=== PATIENT | female | born 1980 | race Caucasian/White ===

== ENCOUNTER 2020-10-30 09:16 | Day surgery (SDC) | payer OTHER ==
[2020-10-24 11:18] VITALS: BMI 45.7
[2020-10-30 11:13] VITALS: TEMP 98.2
[2020-10-30 11:46] VITALS: BP 110/58; PULSE 76
== END 2020-10-30 11:47 | disposition home or self-care (01) ==
LOC: FASU 09:16
PROVIDERS: ATTEND Internal Medicine Gastroenterology
PROC: 0DB68ZX Excision of Stomach, Via Natural or Artificial Opening Endoscopic, Diagnostic (ICD-10-PCS; 2020-10-30)
PROC: 0DB48ZX Excision of Esophagogastric Junction, Via Natural or Artificial Opening Endoscopic, Diagnostic (ICD-10-PCS; 2020-10-30)
PROC: 0DB98ZX Excision of Duodenum, Via Natural or Artificial Opening Endoscopic, Diagnostic (ICD-10-PCS; principal; 2020-10-30 10:56)
DX: K29.50 Unspecified chronic gastritis without bleeding (principal); K22.8 Other specified diseases of esophagus; R10.13 Epigastric pain
CPT/HCPCS: 84703; 88305-TC; 88342-TC

== ENCOUNTER 2021-11-12 09:53 | Day surgery (SDC) | payer OTHER ==
[2021-11-05 14:24] VITALS: BMI 46.4
[2021-11-12] MEDS ORDERED: PROPOFOL 20 ML ONE ×3 (11:23)
[2021-11-12 11:43] VITALS: TEMP 97.7
[2021-11-12 11:57] VITALS: BP 125/81; PULSE 86
== END 2021-11-12 12:23 | disposition home or self-care (01) ==
LOC: FASU-ENDO 09:53
PROVIDERS: ATTEND Internal Medicine Gastroenterology
PROC: 0DJD8ZZ Inspection of Lower Intestinal Tract, Via Natural or Artificial Opening Endoscopic (ICD-10-PCS; principal; 2021-11-12 11:20)
DX: R19.4 Change in bowel habit (principal); K64.1 Second degree hemorrhoids
CPT/HCPCS: 84703